=== PATIENT | male | born 1985 | race Caucasian/White ===

== ENCOUNTER 2017-09-25 05:28 | Emergency (ER) | payer BC ==
[~2017-09-25] VITALS: Ht 190.5 cm; Wt 70.0 kg
[2017-09-25 05:30] VITALS: BP 117/69; PULSE 102; RESP 18; TEMP 98; O2SAT 99
[2017-09-25 05:45] VITALS: RESP 14; O2SAT 98
[2017-09-25 05:54] VITALS: BP 142/89; PULSE 93; RESP 16; O2SAT 98
[2017-09-25] MEDS ORDERED: DICYCLOMINE HCL 20 MG/2 ML VIAL IM ONE (06:00)
[2017-09-25] MEDS ORDERED: PROCHLORPERAZINE INJ 10 MG/2 ML VIAL IV PUSH ONE (06:00)
[2017-09-25] MEDS ORDERED: SODIUM CHLOR 0.9% 1000 ML INJ 1,000 ML IV ONE (06:00)
[2017-09-25 06:33] LABS: AUTOMATED NEUTROPHIL # 17.7 TH/MM3 (1.8-7.7); BASOPHIL % 0.1 % (0.0-2.0); HEMATOCRIT 50.8 % (39.0-51.0); HEMOGLOBIN 17.8 GM/DL (13.0-17.0); LYMPH % 1.5 % (9.0-44.0); LYMPHOCYTE # 0.3 TH/MM3 (1.0-4.8); MEAN CELL VOLUME 87.9 FL (80.0-100.0); MEAN CORPUSCULAR HEMOGLOBIN 30.7 PG (27.0-34.0); MEAN CORPUSCULAR HGB CONC 34.9 % (32.0-36.0); MEAN PLATELET VOLUME 7.9 FL (7.0-11.0); MONO % 3.9 % (0.0-8.0); MONOCYTE # 0.7 TH/MM3 (0-0.9); NEUT % 94.5 % (16.0-70.0); PLATELET COUNT 296 TH/MM3 (150-450); RED BLOOD COUNT 5.78 MIL/MM3 (4.50-5.90); WHITE BLOOD COUNT 18.8 TH/MM3 (4.0-11.0)
[2017-09-25 06:34] LABS: ALT (GPT) 23 U/L (12-78); AST (GOT) 13 U/L (15-37); BICARBONATE 27.8 MEQ/L (21.0-32.0); BLOOD UREA NITROGEN 20 MG/DL (7-18); CHLORIDE 101 MEQ/L (98-107); CREATININE 1.45 MG/DL (0.60-1.30); GLOMERULAR FILTRATION RATE 56 ML/MIN (>89); GLUCOSE,RANDOM 157 MG/DL (74-106); SODIUM (NA) 139 MEQ/L (136-145)
[2017-09-25 06:40] LABS: ALKALINE PHOSPHATASE 53 U/L (45-117); TOTAL BILIRUBIN ADULT 1.4 MG/DL (0.2-1.0); TOTAL PROTEIN 8.8 GM/DL (6.4-8.2)
[2017-09-25] MEDS ORDERED: DIATRIZOATE MEGLUM/DIATRIZOATE SOD 9 ML CUP ONE (06:52)
--- NOTE | 2017-09-25 07:24 | PD ---
HPI Chief Complaint: GI Complaint Time Seen by Provider: 05:48 Travel History International Travel<30 days: No Contact w/Intl Traveler<30days: No Traveled to known affect area: No History of Present Illness HPI This is a 32-year-old male with no past medical history, presents today with complaint and nausea vomiting diarrhea since last night. Patient states that yesterday at 2 PM, he ate at [employer]. He states he had the shrimp ladder. He states about 6-8 hours afterwards, he started expressing nausea vomiting and diarrhea. Patient reports severe cramping in his abdomen. There is no reported fevers, chills. He has had no previous abdominal surgery. There are no other complaints at time of my examination. PFSH Past Medical History Asthma: Yes Diminished Hearing: No Immunizations Current: Yes Past Surgical History Oral Surgery: Yes (JODIE) Social History Alcohol Use: No Tobacco Use: No Substance Use: No Allergies-Medications (Allergen,Severity, Reaction): Coded Allergies: No Known Allergies (Unverified , 09/25/17) Reported Meds & Prescriptions Reported Meds & Active Scripts Active No Active Prescriptions or Reported Medications Review of Systems Except as stated in HPI: all other systems reviewed are Neg General / Constitutional: No: Fever, Chills HENT: No: Headaches, Lightheadedness, Neck Pain Cardiovascular: No: Chest Pain or Discomfort, Palpitations Respiratory: No: Cough, Shortness of Breath Gastrointestinal: Positive: Nausea, Vomiting, Diarrhea, Abdominal Pain Genitourinary: No: Frequency, Dysuria Musculoskeletal: No: Weakness, Pain Neurologic: No: Weakness, Dizziness, Headache Physical Exam Narrative GENERAL: Well-developed well-nourished male no acute respiratory distress SKIN: Focused skin assessment warm/dry. HEAD: Atraumatic. Normocephalic. EYES: Pupils equal and round. No scleral icterus. No injection or drainage. ENT: No nasal bleeding or discharge. Mucous membranes pink and moist. NECK: Trachea midline. No JVD. CARDIOVASCULAR: Regular rate and rhythm. No murmur appreciated. RESPIRATORY: No accessory muscle use. Clear to auscultation. Breath sounds equal bilaterally. GASTROINTESTINAL: Abdomen soft, nondistended. He had diffuse crampy tenderness throughout. Worse in the periumbilical area. No rebound or guarding. MUSCULOSKELETAL: No obvious deformities. No clubbing. No cyanosis. No edema. NEUROLOGICAL: Awake and alert. No obvious cranial nerve deficits. Motor grossly within normal limits. Normal speech. Data Data Last Documented VS Vital Signs Date Time Temp Pulse Resp B/P (MAP) Pulse Ox O2 Delivery O2 Flow Rate FiO2 09/25/17 05:54 93 16 142/89 (106) 98 Room Air 09/25/17 05:30 98.0 Orders Orders Complete Blood Count With Diff (09/25/17 05:55) Comprehensive Metabolic Panel (09/25/17 05:55) Iv Access Insert/Monitor (09/25/17 05:55) Ecg Monitoring (09/25/17 05:55) Oximetry (09/25/17 05:55) Prochlorperazine Inj (Compazine Inj) (09/25/17 06:00) Dicyclomine Inj (Bentyl Inj) (09/25/17 06:00) Sodium Chlor 0.9% 1000 Ml Inj (Ns 1000 M (09/25/17 06:00) Ct Abd/Pel W Iv Contrast(Rout) (09/25/17 06:39) Oral Contrast - Adult (09/25/17 06:46) Diatrizoate Liq ( Gastroview Liq) (09/25/17 06:52) Labs Laboratory Tests Test 09/25/17 06:00 White Blood Count 18.8 TH/MM3 Red Blood Count 5.78 MIL/MM3 Hemoglobin 17.8 GM/DL Hematocrit 50.8 % Mean Corpuscular Volume 87.9 FL Mean Corpuscular Hemoglobin 30.7 PG Mean Corpuscular Hemoglobin Concent 34.9 % Red Cell Distribution Width 13.0 % Platelet Count 296 TH/MM3 Mean Platelet Volume 7.9 FL Neutrophils (%) (Auto) 94.5 % Lymphocytes (%) (Auto) 1.5 % Monocytes (%) (Auto) 3.9 % Eosinophils (%) (Auto) 0.0 % Basophils (%) (Auto) 0.1 % Neutrophils # (Auto) 17.7 TH/MM3 Lymphocytes # (Auto) 0.3 TH/MM3 Monocytes # (Auto) 0.7 TH/MM3 Eosinophils # (Auto) 0.0 TH/MM3 Basophils # (Auto) 0.0 TH/MM3 CBC Comment DIFF FINAL Differential Comment Blood Urea Nitrogen 20 MG/DL Creatinine 1.45 MG/DL Random Glucose 157 MG/DL Total Protein 8.8 GM/DL Albumin 5.0 GM/DL Calcium Level 10.0 MG/DL Alkaline Phosphatase 53 U/L Aspartate Amino Transf (AST/SGOT) 13 U/L Alanine Aminotransferase (ALT/SGPT) 23 U/L Total Bilirubin 1.4 MG/DL Sodium Level 139 MEQ/L Potassium Level 4.1 MEQ/L Chloride Level 101 MEQ/L Carbon Dioxide Level 27.8 MEQ/L Anion Gap 10 MEQ/L Estimat Glomerular Filtration Rate 56 ML/MIN MDM Medical Decision Making Medical Screen Exam Complete: Yes Emergency Medical Condition: Yes Differential Diagnosis Gastroenteritis versus appendicitis versus diverticulitis versus food related illness. Narrative Course 32-year-old male presents with nausea vomiting diarrhea. Patient had suspicious food at [facility] yesterday. There are no other people with him that were sick. The patient denies any fevers, chills. The patient i has a white blood cell count of 18,000. His BUN and creatinine are also elevated. He has been given 1 L of IV fluids. He will have a CT abdomen pelvis to rule out acute intra-abdominal pathology. Patient be signed out to Dr. Bruce, physician replaced me at change of shift. Disposition will be per her. Diagnosis Primary Impression: Nausea vomiting and diarrhea Additional Impression: Acute kidney injury Scripts No Active Prescriptions or Reported Meds Luis Carlos Hinkle MD Sep 25, 2017 07:24
[2017-09-25] MEDS ORDERED: IOHEXOL 350 MG/ML 10 ML VIAL (for RAD DIAG) IVCONTRAST ONE (08:47)
--- NOTE | 2017-09-25 09:17 | RADRPT ---
EXAM DATE/TIME: 09/25/2017 08:34 [facility] COMPARISON: No previous studies available for comparison. INDICATIONS : Abdominal pain, vomiting IV CONTRAST: 85 cc Omnipaque 350 (iohexol) IV ORAL CONTRAST: Prescribed oral contrast ingested. RADIATION DOSE: 4.74 CTDIvol (mGy) MEDICAL HISTORY : None SURGICAL HISTORY : None. ENCOUNTER: Initial ACUITY: 1 day PAIN SCALE: 4/10 LOCATION: Bilateral Abdomen TECHNIQUE: Volumetric scanning of the abdomen and pelvis was performed. Using automated exposure control and ad justment of the mA and/or kV according to patient size, radiation dose was kept as low as reasonably achievable to obtain optimal diagnostic quality images. DICOM format image data is available electro nically for review and comparison. FINDINGS: LOWER LUNGS: The visualized lower lungs are clear. LIVER: Homogeneous density without lesion. There is no dilation of the biliary tree. No calcified gallston es. SPLEEN: Normal size without lesion. PANCREAS: Within normal limits. KIDNEYS: Normal in size and shape. There is no mass, stone or hydronephrosis. ADRENAL GLANDS: Within normal limits. VASCULAR: There is no aortic aneurysm. BOWEL/MESENTERY: The stomach, small bowel, and colon demonstrate no acute abnormality. There is no free intraperitone al air or fluid. ABDOMINAL WALL: Within normal limits. RETROPERITONEUM: There is no lymphadenopathy. BLADDER: No wall thickening or mass. REPRODUCTIVE: Within normal limits. INGUINAL: There is no lymphadenopathy or hernia. MUSCULOSKELETAL: Within normal limits for patient age. CONCLUSION: No acute CT findings the abdomen or pelvis. Robert Mancia MD on September 25, 2017 at 8:56 Board Certified Radiologist. This report was verified electronically.
[2017-09-25] MEDS ORDERED: ZOFR4TAB3 SL (09:30)
--- NOTE | 2017-09-25 09:30 | PD ---
Physical Exam Narrative Patient signed out to me by Dr. Hinkle. Please see his documentation for complete details. Briefly, patient is a 32-year-old male comes in complaining of nausea, vomiting , diarrhea. He says it started while after eating at [employer]. Patient was given IV fluids, Zofran. Currently, exam shows no tenderness to palpation of the abdomen. Data Data Last Documented VS Vital Signs Date Time Temp Pulse Resp B/P (MAP) Pulse Ox O2 Delivery O2 Flow Rate FiO2 09/25/17 05:54 93 16 142/89 (106) 98 Room Air 09/25/17 05:30 98.0 Orders Orders Complete Blood Count With Diff (09/25/17 05:55) Comprehensive Metabolic Panel (09/25/17 05:55) Iv Access Insert/Monitor (09/25/17 05:55) Ecg Monitoring (09/25/17 05:55) Oximetry (09/25/17 05:55) Prochlorperazine Inj (Compazine Inj) (09/25/17 06:00) Dicyclomine Inj (Bentyl Inj) (09/25/17 06:00) Sodium Chlor 0.9% 1000 Ml Inj (Ns 1000 M (09/25/17 06:00) Ct Abd/Pel W Iv Contrast(Rout) (09/25/17 06:39) Oral Contrast - Adult (09/25/17 06:46) Diatrizoate Liq ( Gastroview Liq) (09/25/17 06:52) Iohexol 350 Inj (Omnipaque 350 Inj) (09/25/17 08:47) Labs Laboratory Tests Test 09/25/17 06:00 White Blood Count 18.8 TH/MM3 Red Blood Count 5.78 MIL/MM3 Hemoglobin 17.8 GM/DL Hematocrit 50.8 % Mean Corpuscular Volume 87.9 FL Mean Corpuscular Hemoglobin 30.7 PG Mean Corpuscular Hemoglobin Concent 34.9 % Red Cell Distribution Width 13.0 % Platelet Count 296 TH/MM3 Mean Platelet Volume 7.9 FL Neutrophils (%) (Auto) 94.5 % Lymphocytes (%) (Auto) 1.5 % Monocytes (%) (Auto) 3.9 % Eosinophils (%) (Auto) 0.0 % Basophils (%) (Auto) 0.1 % Neutrophils # (Auto) 17.7 TH/MM3 Lymphocytes # (Auto) 0.3 TH/MM3 Monocytes # (Auto) 0.7 TH/MM3 Eosinophils # (Auto) 0.0 TH/MM3 Basophils # (Auto) 0.0 TH/MM3 CBC Comment DIFF FINAL Differential Comment Blood Urea Nitrogen 20 MG/DL Creatinine 1.45 MG/DL Random Glucose 157 MG/DL Total Protein 8.8 GM/DL Albumin 5.0 GM/DL Calcium Level 10.0 MG/DL Alkaline Phosphatase 53 U/L Aspartate Amino Transf (AST/SGOT) 13 U/L Alanine Aminotransferase (ALT/SGPT) 23 U/L Total Bilirubin 1.4 MG/DL Sodium Level 139 MEQ/L Potassium Level 4.1 MEQ/L Chloride Level 101 MEQ/L Carbon Dioxide Level 27.8 MEQ/L Anion Gap 10 MEQ/L Estimat Glomerular Filtration Rate 56 ML/MIN MDM Supervised Visit with JAKE: No Narrative Course Patient is resting comfortably, he is drinking fluids without vomiting. CT of the abdomen and pelvis performed shows no acute abnormalities. Patient does have an elevated white blood cell count, this is likely due to the vomiting and virus. He is encouraged to drink plenty of fluids. Discharged with prescription for Zofran. Advised follow-up with a primary care doctor. Advised to return as needed for any worsening symptoms. Advised to eat a bland diet if he is feeling hungry. Diagnosis Primary Impression: Nausea vomiting and diarrhea Patient Instructions: Acute Nausea and Vomiting (ED), General Instructions Additional Instruction: Drink plenty of fluids. If you are feeling hungry, eating a bland diet. Follow -up with a primary doctor. Return to the ED as needed for any worsening symptoms. Scripts Ondansetron Odt (Zofran Odt) 4 Mg Tab 4 MG SL Q6HR Y for Nausea/Vomiting, #12 TAB 0 Refills Prov: Umu Bruce MD 09/25/17 Disposition: DISCHARGE HOME Condition: Stable Umu Bruce MD Sep 25, 2017 09:30
== END 2017-09-25 10:42 | disposition home or self-care (01) ==
LOC: NEPE 05:28
DX: R11.2 Nausea with vomiting, unspecified (principal); R19.7 Diarrhea, unspecified; N17.9 Acute kidney failure, unspecified
CPT/HCPCS: 74177; 80053; 85025; 96361; 96372; 96374; 99284; J0500; J0780; J7030; Q9963; Q9967